=== PATIENT | female | born 1945 | race Caucasian/White ===

== ENCOUNTER 2017-07-06 12:55 | Outpatient (CLI) | payer MEDICARE, OTHER | END 2017-07-06 12:56 | disposition home or self-care (01) | LOC: BICMAMMO 12:55 | PROVIDERS: ATTEND Family Medicine | DX: Z12.31 Encounter for screening mammogram for malignant neoplasm of breast (principal); R92.1 Mammographic calcification found on diagnostic imaging of breast; Z80.3 Family history of malignant neoplasm of breast | CPT/HCPCS: 77063; 77067 ==

== ENCOUNTER 2018-01-21 01:19 | Inpatient (IN) | payer MEDICARE ==
[2018-01-21] MEDS ORDERED: Acetaminophen 325 MG TAB PO PRN ×2 (03:22→10:15)
[2018-01-21] MEDS ORDERED: Ondansetron ODT 4 MG TAB SL PRN (03:22)
[2018-01-21] MEDS ORDERED: HYDROcodone/Acetaminophen 5/325 mg Tablet PO PRN ×2 (03:22)
[2018-01-21] MEDS ORDERED: Ondansetron HCl/PF 4 MG/2 ML Vial IVP PRN (03:22)
[2018-01-21] MEDS ORDERED: Dextrose 50% Abboject 50 ML SYRINGE SLOW IVP PRN (03:45)
[2018-01-21] MEDS ORDERED: Dextrose 5% in Water 1,000 ML IV PRN (03:45)
[2018-01-21] MEDS ORDERED: HumaLOG 300 UNITS/3 ML VIAL SC PRN (03:45)
--- NOTE | 2018-01-21 07:41 | HP ---
PRIMARY CARE DOCTOR FOR THIS PATIENT: Dr. Rodríguez. CODE STATUS: FULL CODE. TIME OF EVALUATION: 3:49 a.m. CHIEF COMPLAINT: Snake bite. HISTORY OF PRESENT ILLNESS: This is a 72-year-old female patient with past medical history of diabet es and hypertension who came to the hospital after having a snake bite in the backyard, around 2200 h ours she took Benadryl. The patient had severe pain, swelling, she could not see the snake and prese nted to and was transferred here. She got some CroFab. Prior to transfer, symptoms have impro lelo significantly and swelling is not worsening. No discoloration on the right foot. The patient ne eding opiate medication for edema control, the pain is very severe. No nausea, no vomiting, no diarr hea, no palpitations, no shortness of breath. REVIEW OF SYSTEMS: Constitutional: No fever, chills, or generalized weakness. Respiratory: No cou gh, sputum production, or shortness of breath. Cardiovascular: No chest pain, palpitation, or short ness of breath. Gastrointestinal: No nausea, no vomiting, diarrhea or abdominal pain. GENETIC COUNSELOR: No diz ziness, headache, or feeling lightheaded. Genitourinary: No burning with urination. Extremities: No leg swelling. All other systems were reviewed and negative except for the findings mentioned abov e. PAST MEDICAL HISTORY: Mentioned in the HPI. PAST SURGICAL HISTORY: Appendectomy, cholecystectomy, hysterectomy. PSYCHIATRIC HISTORY: No psych history. SOCIAL HISTORY: No alcohol, no drug use, no smoking history. FAMILY HISTORY: Reviewed and noncontributory for current presentation. DRUG ALLERGIES: No known drug allergies. REPORTED MEDICATIONS: Amlodipine, metoprolol, atorvastatin, aspirin, PreserVision, metformin, quinap ril, ropinirole. PHYSICAL EXAMINATION: VITAL SIGNS: On presentation, blood pressure 120/96 with heart rate 69, respiratory rate was 16, tem perature 98.1, pain was 6/10 after morphine was given. GENERAL APPEARANCE: Patient is alert, oriented, not in any acute distress. HEAD AND EYES: Normal conjunctivae. Moist oral mucosa. Anicteric. NECK: No JVD. RESPIRATORY: Bilateral air entry. No rales, no wheezing. Symmetric expansion. CARDIOVASCULAR: Normal rate, regular rhythm. No murmurs, no gallop. No edema. ABDOMEN: Soft. Normal bowel sounds. MUSCULOSKELETAL: Baseline range of motion and strength except for the right foot that has pain, tend erness, swelling, redness . SKIN: Warm and intact. No pallor, no rash, no redness except for the findings described in musculos keletal. Peripheral pulses are present. Capillary refill seems to be intact. NEUROLOGIC: Baseline sensorium. No evidence of any new focal weakness. Baseline speech. Cranial n erves seemed to be intact. Patient has increased dysesthesia of the right foot. PSYCHIATRIC: The patient is in good mood. No anxiety, oriented, optimal adjustment. LABORATORY DATA: Reviewed. Hematology was normal with white count 9.3, hemoglobin 13.4, MCV 86, and platelet count 268. Coagulation was normal. Chemistry was normal with sodium 141, potassium 3.7, c hloride 105, carbon dioxide 23, anion gap 17, BUN 21, creatinine 0.8, GFR 67, glucose 99. LFTs were normal. ASSESSMENT AND PLAN: 1. Snake bites. The patient received CroFab prior to transfer, symptoms are not worsening. No syst emic symptoms, I will continue treating with pain medication. We will repeat labs in the morning, we will monitor and adjust treatment as needed. 2. Severe pain. The patient needed pain medication for edema control and this places the patient at high risk of complication from treatment. 3. Controlled diabetes. Home medications have been reconciled. Place the patient on sliding scale for edema control as inpatient. 4. Deep venous thrombosis prophylaxis. 5. Uncontrolled hypertension. Systolic blood pressure on presentation of 151, likely exacerbated by pain. We will reconcile home medications. We will adjust treatment as needed.
[2018-01-21] MEDS: Vit A,C & E/Lutein/Minerals Tablet PO SCH (08:22)
[2018-01-21] MEDS: Amlodipine 10 MG TAB PO SCH (08:23)
[2018-01-21] MEDS: Metoprolol Tartrate 50 MG TAB PO SCH ×2 (08:24→21:00)
[2018-01-21] MEDS: rOPINIRole HCl 0.25 MG TAB PO SCH (08:24)
[2018-01-21] MEDS: Sodium Chloride 0.9% 1,000 ML IV SCH ×2 (08:38→21:00)
[2018-01-21 08:51] LABS: #Eosinphils 0.2 thou/uL (0.0-0.7); #Lymphocytes 1.3 thou/uL (1.20-3.40); #Monocytes 0.5 thou/uL (0.11-0.59); #Neutrophils 3.6 thou/uL (1.40-6.50); %Basophils 0.9 % (0.0-1.0); %Eosinophils 3.4 % (0.0-10.0); %Lymphocytes 23.6 % (21.0-51.0); %Monocytes 7.9 % (0.0-10.0); %Neutrophils 64.3 % (42.0-75.0); Hemoglobin 11.9 g/dL (12.0-16.0); Mean Corpuscular HGB CONC 34.4 g/dL (32.0-36.0); Mean Corpuscular Hemoglobin 31.3 pg (27.0-31.0); Mean Platelet Volume 7.1 fL (7.4-10.4); Platelet Count 214 thou/uL (130-400); RBC Distribution Width 11.9 % (11.5-14.5); White Blood Cell (WBC) Count 5.7 thou/uL (4.8-10.8)
[2018-01-21] MEDS ORDERED: Enoxaparin Sodium 40 MG/0.4 ML SYRINGE SC SCH (09:00)
[2018-01-21] MEDS ORDERED: Atorvastatin Calcium 40 MG TAB PO SCH (09:00)
[2018-01-21] MEDS ORDERED: Prevnar 13-Val Conj/PF 0.5 ML SYRINGE IM ONE (09:00)
[2018-01-21 09:07] LABS: Fibrinogen 282 mg/dL (253-463)
[2018-01-21 09:08] LABS: PTT 31.6 SEC (22.9-36.1); Prothrombin Time 13.3 SEC (12.0-14.7)
[2018-01-21 09:11] LABS: ALT (SGPT) 169 U/L (8-55); AST (SGOT) 233 U/L (5-34); Albumin 3.4 g/dL (3.4-4.8); Alkaline Phosphatase 89 U/L (40-150); Anion Gap 8 mmol/L (10-20); BUN (Urea Nitrogen) 20 mg/dL (9.8-20.1); Bilirubin, Total 0.4 mg/dL (0.2-1.2); CK (CPK) 76 U/L (29-168); Calc. Creatinine Clearance 65 mL/min (70-130); Calcium 8.4 mg/dL (7.8-10.44); Carbon Dioxide 27 mmol/L (23-31); Chloride 110 mmol/L (98-107); Estimated GFR-MDRD 66; Globulin 2.5 g/dL (2.4-3.5); Glucose 158 mg/dL (83-110); Potassium 3.5 mmol/L (3.5-5.1); Protein, Total 5.9 g/dL (6.0-8.3); Sodium 141 mmol/L (136-145)
[2018-01-21 10:38] LABS: FSP-Qualitative ABNORMAL (Normal); FSP-Semiquantitative >=5 & <20 mcg/mL (Less than 5)
[2018-01-21] MEDS ORDERED: HYDROcodone/Acetaminophen 10/325 mg Tablet PO PRN (10:40)
[2018-01-21] MEDS ORDERED: Promethazine 25 MG TAB PO PRN (10:40)
[2018-01-21] MEDS ORDERED: diphenhydrAMINE 25 MG CAP PO PRN (14:01)
--- NOTE | 2018-01-21 16:25 | RAD ---
RADIOGRAPH RIGHT FOOT THREE VIEWS: History: 72-year-old female status post snake bite to the right foot. Rule out foreign body. FINDINGS: There is no evidence of radiopaque foreign body. There are mild hypertrophic degenerative changes at the first MTP. No destructive osseous lesion. The first, second, and third TMT joint spaces are poorl y visualized. IMPRESSION: 1. No radiopaque foreign body. 2. 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 3. 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 POS: BECCA
[2018-01-22 05:03] LABS: #Eosinphils 0.2 thou/uL (0.0-0.7); #Lymphocytes 1.7 thou/uL (1.20-3.40); #Monocytes 0.4 thou/uL (0.11-0.59); #Neutrophils 5.5 thou/uL (1.40-6.50); %Basophils 0.5 % (0.0-1.0); %Eosinophils 3.1 % (0.0-10.0); %Lymphocytes 21.3 % (21.0-51.0); %Monocytes 5.2 % (0.0-10.0); %Neutrophils 69.9 % (42.0-75.0); Hemoglobin 11.9 g/dL (12.0-16.0); Mean Corpuscular HGB CONC 33.7 g/dL (32.0-36.0); Mean Corpuscular Hemoglobin 30.6 pg (27.0-31.0); Mean Corpuscular Volume 90.7 fL (78.0-98.0); Mean Platelet Volume 7.3 fL (7.4-10.4); Platelet Count 212 thou/uL (130-400); White Blood Cell (WBC) Count 7.9 thou/uL (4.8-10.8)
[2018-01-22 05:09] LABS: Fibrinogen 364 mg/dL (253-463)
[2018-01-22 05:10] LABS: PTT 32.9 SEC (22.9-36.1); Prothrombin Time 13.4 SEC (12.0-14.7)
[2018-01-22 05:22] LABS: ALT (SGPT) 115 U/L (8-55); AST (SGOT) 62 U/L (5-34); Albumin 3.4 g/dL (3.4-4.8); Alkaline Phosphatase 87 U/L (40-150); Anion Gap 9 mmol/L (10-20); BUN (Urea Nitrogen) 13 mg/dL (9.8-20.1); Bilirubin, Total 0.6 mg/dL (0.2-1.2); Calc. Creatinine Clearance 70 mL/min (70-130); Calcium 8.1 mg/dL (7.8-10.44); Carbon Dioxide 27 mmol/L (23-31); Chloride 109 mmol/L (98-107); Estimated GFR-MDRD 72; Globulin 2.6 g/dL (2.4-3.5); Glucose 113 mg/dL (83-110); Magnesium 2.2 mg/dL (1.6-2.6); Sodium 141 mmol/L (136-145)
[2018-01-22 07:54] LABS: FSP-Qualitative ABNORMAL (Normal); FSP-Semiquantitative >=5 & <20 mcg/mL (Less than 5)
[2018-01-22] MEDS: Metoprolol Tartrate 50 MG TAB PO SCH ×2 (08:10→21:08)
[2018-01-22] MEDS: Vit A,C & E/Lutein/Minerals Tablet PO SCH (08:10)
[2018-01-22] MEDS: Amlodipine 10 MG TAB PO SCH (08:10)
[2018-01-22] MEDS: rOPINIRole HCl 0.25 MG TAB PO SCH (08:10)
--- NOTE | 2018-01-22 10:50 | CON ---
DATE OF CONSULTATION: 01/22/2018 CONSULTING PHYSICIAN: Dr. Dilan Landin HISTORY: We were asked by the [facility] to see the patient. The patient was out last night, ear ly this morning in her backyard when she was bit by a snake. She thinks it was around 10:00 last nig ht, she took some Benadryl came into the hospital and was evaluated 3:49 a.m. At that time she had s ignificant pain, swelling. She did get some CroFab this morning when we evaluated her, she is doing much better. She still has not been up walking on her foot yet, but the pain and swelling has dimini shed greatly. No numbness and tingling in her foot, she was asking if she is able to go home today. PAST MEDICAL HISTORY: Appendectomy, cholecystectomy, hysterectomy. SOCIAL HISTORY: No alcohol or nicotine products. FAMILY HISTORY: Noncontributory. DRUG ALLERGIES: No drug allergies. CURRENT MEDICATIONS: Amlodipine, metoprolol, atorvastatin, aspirin, Preservision, metformin, quinapr il, ropinirole. PAST MEDICAL HISTORY: Diabetes, hyperlipidemia, hypertension. REVIEW OF SYSTEMS: Healthy female. No chest pain, shortness of breath. Right lower extremity has s ome pain, but again it is better since last night. PHYSICAL EXAMINATION: GENERAL: Well-nourished, well-developed female resting in [id number] bed in no acute distress. Speech is clear. Answers questions appropriately. Alert and oriented x3. HEENT: Face symmetric, tongue midline. Trachea midline. NECK: Supple. EXTREMITIES: Upper extremities, equal size, shape, normal bulk, tone. Lower extremities, right lowe r extremity is asymptomatic, no positive findings. Right lower extremity does have a little bit of r edness and swelling where her foot was outlined with redness, it is now diminished. Pulses are equal and symmetric. She is able to dorsiflex and plantarflex her toes and ankle well. She does have obv ious bite on the medial aspect of her foot. Sensations are intact. ASSESSMENT: Snake bite, no compartment syndrome. PLAN: The patient is okay to discharge home per Ortho Service when she is medically cleared. We did write her some Duricef just to cover her prophylactically for 5 days. The patient has no other comp laints, needs no further follow up with Ortho in the future and again can be discontinued once medica lly cleared. X-rays negative findings.
[2018-01-22] MEDS ORDERED: Calcium Carbonate 500 MG ChewTAB PO PRN (13:52)
[2018-01-22] MEDS ORDERED: Mag-Al 1200 mg/1200 mg/30 ML UDCUP PO PRN (13:52)
--- NOTE | 2018-01-22 23:00 | PDOC.PN ---
- Subjective Encounter Start Date: 01/22/18 Encounter Start Time: 09:45 Patient seen and examined for snake bite. Rt foot pain +. No overnight events - Objective Resuscitation Status: Resuscitation Status FULL:Full Resuscitation MAR Reviewed: Yes Vital Signs & Weight: Vital Signs (12 hours) Temp Pulse Resp BP Pulse Ox 01/22/18 20:34 99.1 F 71 18 123/73 91 L 01/22/18 20:00 99.1 F 71 18 96 01/22/18 16:09 98.5 F 67 16 123/59 L 94 L Weight Weight 153 lb 1.6 oz I&O: 01/21/18 01/22/18 01/23/18 06:59 06:59 06:59 Intake Total 340 Balance 340 Result Diagrams: 01/22/18 04:08 01/22/18 04:08 Additional Labs: Accuchecks 01/22/18 01/22/18 01/22/18 20:37 16:12 11:00 POC Glucose 125 H 131 H 120 H 01/22/18 04:24 POC Glucose 107 Radiology Reviewed by me: Yes (Rt foot XR - No fractures) Phys Exam - Physical Examination Constitutional: NAD Respiratory: no wheezing, no rhonchi Cardiovascular: RRR, no rub Gastrointestinal: soft, non-tender, positive bowel sounds Musculoskeletal: no edema Rt foot swelling with some tenderness Neurological: moves all 4 limbs Psychiatric: A&O x 3 Dx/Plan - Plan DVT proph w/SCDs IMPRESSION: 1. Snake bite ? [place] s/p Antivenin with Coagulopathy 2. Fever ?etio 3. HTN 4. DM2 PLAN: Consult [place] due to fever Coagulation profile Cont Laboratory Tests 01/22/18 04:08 Fibrin Degrad Products ABNORMAL H Fibrin Degrad Prod, Qt >=5 & <20 H Review of Systems - Review of Systems Respiratory: negative: Cough, Dry, Shortness of Breath, Hemoptysis, SOB with Excertion, Pleuritic Pain, Sputum, Wheezing Cardiovascular: negative: chest pain, palpitations, orthopnea, paroxysmal nocturnal dyspnea, edema, light headedness, other - Medications/Allergies Allergies/Adverse Reactions: Allergies Allergy/AdvReac Type Severity Reaction Status Date / Time No Known Drug Allergies Allergy Verified 01/21/18 03:34 Medications: Current Medications Acetaminophen (Tylenol) 650 mg PO Q4H PRN PRN Reason: Headache/Fever or Pain Stop: 01/25/18 14:10 Last Admin: 01/21/18 22:54 Dose: 650 mg Acetaminophen (Tylenol) 325 mg PO Q6H PRN PRN Reason: Headache/Fever or Pain Hydrocodone Bitart/Acetaminophen ([place] 10/325) 1 tab PO Q6H PRN PRN Reason: Severe Pain (7-10) Last Admin: 01/22/18 11:42 Dose: 1 tab Al Hydroxide/Mg Hydroxide (Maalox) 30 ml PO Q6H PRN PRN Reason: Heartburn or Indigestion Amlodipine Besylate (Norvasc) 10 mg PO DAILY [facility] Last Admin: 01/22/18 08:10 Dose: 10 mg Calcium Carbonate (Tums) 1,000 mg PO Q4H PRN PRN Reason: Heartburn or Indigestion Last Admin: 01/22/18 14:38 Dose: 1,000 mg Dextrose/Water (Dextrose 50%) 25 gm SLOW IVP PRN PRN PRN Reason: Hypoglycemia Diphenhydramine HCl (Benadryl) 25 mg PO Q6H PRN PRN Reason: Itching & Insomnia Glucagon (Glucagon) 1 mg IM PRN PRN PRN Reason: Hypoglycemia Dextrose/Water (D5w) 1,000 mls @ 0 mls/hr IV .Q0M PRN PRN Reason: Hypoglycemia Insulin Human Lispro (Humalog) 0 units SC .MILD SLIDING SCALE PRN PRN Reason: Mild Correctional Scale Metoprolol Tartrate (Lopressor) 50 mg PO BID [facility] Last Admin: 01/22/18 21:08 Dose: 50 mg Morphine Sulfate (Morphine) 2 mg SLOW IVP Q4H PRN PRN Reason: PAIN (7-10) Last Admin: 01/22/18 18:10 Dose: 2 mg Multivitamins/Minerals (Ocuvite With Lutein) 1 tab PO DAILY [facility] Last Admin: 01/22/18 08:10 Dose: 1 tab Ondansetron HCl (Zofran) 4 mg IVP Q6H PRN PRN Reason: Nausea/Vomiting Stop: 01/25/18 14:10 Last Admin: 01/21/18 09:25 Dose: 4 mg Ondansetron HCl (Zofran Odt) 4 mg SL Q6H PRN PRN Reason: Nausea/Vomiting Stop: 01/25/18 14:10 Quinapril HCl (Accupril) 20 mg PO DAILY [facility] Last Admin: 01/22/18 08:09 Dose: 20 mg Ropinirole HCl (Requip) 0.25 mg PO DAILY [facility] Last Admin: 01/22/18 08:10 Dose: 0.25 mg
[2018-01-23 04:59] LABS: Fibrinogen 416 mg/dL (253-463)
[2018-01-23 05:00] LABS: INR-International Normal Ratio 1.1; PTT 33.5 SEC (22.9-36.1); Prothrombin Time 13.9 SEC (12.0-14.7)
[2018-01-23 05:09] LABS: FSP-Qualitative ABNORMAL (Normal); FSP-Semiquantitative >=5 & <20 mcg/mL (Less than 5)
[2018-01-23 07:39] VITALS: TEMP 98.6
[2018-01-23] MEDS: Amlodipine 10 MG TAB PO SCH (09:24)
[2018-01-23] MEDS: Metoprolol Tartrate 50 MG TAB PO SCH (09:24)
[2018-01-23] MEDS: Vit A,C & E/Lutein/Minerals Tablet PO SCH (09:25)
[2018-01-23] MEDS: rOPINIRole HCl 0.25 MG TAB PO SCH (09:25)
[2018-01-23 09:27] VITALS: BP 151/74
--- NOTE | 2018-01-24 03:36 | DIS ---
DATE OF ADMISSION: 01/21/2018 DATE OF DISCHARGE: 01/23/2018 DISCHARGE DIAGNOSES: Hyper envenomation of the right foot. HOSPITAL COURSE: This patient is a 72-year-old female who was riding to her home and stepped out of her car wearing open shoes and had pain in her right foot. Subsequently, she saw the snake leaving t vicinity, but was not able to identify it otherwise. She had continued pain and swelling in her f oot and presented to an outside Emergency Department in [place]. There, the patient received 4 doses of CroFab and was subsequently transferred to this facility. HOSPITAL COURSE: The patient had cessation of her progression and her coag studies remained normal. She did have a low grade temperature of 100.6 and Ortho was consulted. I do not believe that the pa will had any compartment syndrome more comfortable with the patient being discharged on oral antibio tics for prophylaxis. In the hospital, the patient had received a tetanus vaccine as well as pneumon ia vaccine. Her foot continued to improve in appearance and subjectively her pain improved as well. PHYSICAL EXAMINATION: On the day of discharge, temperature 98.6, pulse 60, BP 151/74, O2 sat 92% on room air with respirations 20. The foot appeared remarkably improved. There was a tiny area of ecch ymoses at the puncture site. Otherwise, there was no significant erythema. There is only very mild tenderness around the puncture site. Discussed the disposition, I discussed the case with Poison Control, gave them an update, reviewed he r coag studies. She is stable for discharge to home. She is to discharge to home. Her activities a s tolerated. She will remain on a diabetic diet. She has a prescription for cefadroxil 500 mg b.i.d . which indicated she did not feel like she needed and may not take. Accupril, metformin, PreserVisi on, aspirin, Lopressor, Lipitor, Norvasc, ropinirole. She is to follow up with Dr. Rodríguez and needs repeat coagulation studies in 2 days and again in 7 days. The patient is encouraged to return to the emergency department should she have any problems prior to the time of her follow up.
== END 2018-01-23 16:46 | disposition home or self-care (01) | DRG 918 ==
LOC: ERS 01:19 → T4-B 02:16
PROVIDERS: ADMIT Hospitalist; ATTEND Hospitalist
DX: T63.001A Toxic effect of unspecified snake venom, accidental (unintentional), initial encounter (principal); I10 Essential (primary) hypertension; E11.9 Type 2 diabetes mellitus without complications; M79.671 Pain in right foot; M79.89 Other specified soft tissue disorders; E78.5 Hyperlipidemia, unspecified; R50.9 Fever, unspecified; Z23 Encounter for immunization; Z79.84 Long term (current) use of oral hypoglycemic drugs; Z79.82 Long term (current) use of aspirin; Z79.899 Other long term (current) drug therapy; Y92.017 Garden or yard in single-family (private) house as the place of occurrence of the external cause
CPT/HCPCS: 36415; 36416; 80053; 82550; 83735; 85025; 85362; 85384; 85610; 85730; 90471; 90670; 99285; G0009; G8978-GP-CL; G8979-GP-CK; J1650; J2270; J2405; Q0162

== ENCOUNTER 2018-07-09 10:07 | Outpatient (CLI) | payer MEDICARE | END 2018-07-09 10:08 | disposition home or self-care (01) | LOC: BICMAMMO 10:07 | PROVIDERS: ATTEND Family Medicine | DX: Z12.31 Encounter for screening mammogram for malignant neoplasm of breast (principal); R92.1 Mammographic calcification found on diagnostic imaging of breast; Z80.3 Family history of malignant neoplasm of breast | CPT/HCPCS: 77063; 77067 ==

== ENCOUNTER 2019-07-10 15:38 | Outpatient (CLI) | payer MEDICARE ==
--- NOTE | 2019-07-10 16:19 | MMO ---
Bilateral MAMMO Bilat Screen [facility]. CLINICAL HISTORY: Patient is 73 years old and is seen for screening. The patient has no family history of breast cancer. The patient has no personal history of cancer. VIEWS: The views performed were: bilateral craniocaudal with tomosynthesis and bilateral mediolateral oblique with tomosynthesis. FILMS COMPARED: The present examination has been compared to prior imaging studies performed at [facility] on 05/04/2015, 05/09/2016, 07/06/2017 and 07/09/2018. This study has been interpreted with the assistance of computer-aided detection. MAMMOGRAM FINDINGS: The breasts are heterogeneously dense, which could obscure a lesion on mammography. There are stable benign appearing calcifications seen in both breasts. There are no suspicious masses, suspicious calcifications, or new areas of architectural distortion. IMPRESSION: THERE IS NO MAMMOGRAPHIC EVIDENCE OF MALIGNANCY. A ROUTINE FOLLOW-UP MAMMOGRAM IN 1 YEAR IS RECOMMENDED. THE RESULTS OF THIS EXAM WERE SENT TO THE PATIENT. ACR BI-RADS Category 2 - Benign finding MAMMOGRAPHY NOTE: 1. A negative mammogram report should not delay a biopsy if a dominant of clinically suspicious mass is present. 2. Approximately 10% to 15% of breast cancers are not detected by mammography. 3. Adenosis and dense breasts may obscure an underlying neoplasm. Reported by: CARLA ALEXANDER MD Electonically Signed: [id number]
== END 2019-07-10 15:39 | disposition home or self-care (01) ==
LOC: BICMAMMO 15:38
PROVIDERS: ATTEND Family Medicine
DX: Z12.31 Encounter for screening mammogram for malignant neoplasm of breast (principal)
CPT/HCPCS: 77063; 77067

== ENCOUNTER 2020-08-19 10:31 | Outpatient (CLI) | payer MEDICARE | END 2020-08-19 10:32 | disposition home or self-care (01) | LOC: BICMAMMO 10:31 | PROVIDERS: ATTEND Family Medicine | DX: Z12.31 Encounter for screening mammogram for malignant neoplasm of breast (principal); Z80.3 Family history of malignant neoplasm of breast | CPT/HCPCS: 77063; 77067 ==

== ENCOUNTER 2020-09-17 14:36 | Outpatient (CLI) | payer MEDICARE | END 2020-09-17 14:37 | disposition home or self-care (01) | LOC: ULT 14:36 | PROVIDERS: ATTEND Family Medicine | DX: M79.89 Other specified soft tissue disorders (principal) ==